=== PATIENT | female | born 1975 | race African-American/Black ===

== ENCOUNTER 2023-09-07 06:40 | Day surgery (SDC) | payer MEDICAID ==
[~2023-09-07] VITALS: Ht 167.6 cm; Wt 130.2 kg
[2023-09-07] MEDS ORDERED: ATOR10TA52 PO (08:29)
[2023-09-07] MEDS ORDERED: MAGN400T40 PO (08:29)
[2023-09-07] MEDS ORDERED: TIZA6CAP10 PO (08:29)
[2023-09-07] MEDS ORDERED: OXYC325T14 PO (08:29)
[2023-09-07] MEDS ORDERED: TIRZ2.5I SC (08:29)
[2023-09-07] MEDS ORDERED: METO25TA5 PO (08:29)
[2023-09-07] MEDS ORDERED: FLUT1AER17 IN (08:29)
[2023-09-07] MEDS ORDERED: ALB5IS NEB (08:29)
[2023-09-07] MEDS ORDERED: HEPARIN SODIUM (PORCINE) 5000 UNITS/ML 1ML VIAL ONE (09:53)
[2023-09-07] MEDS ORDERED: ANGIOMAX 250 MG VIAL IV ONE (09:53)
[2023-09-07] MEDS ORDERED: MIDAZOLAM HCL 2MG/2ML 2ml VIAL (1mg/ml) ONE (09:54)
[2023-09-07] MEDS ORDERED: fentaNYL CITRATE 100 MCG/2 ML VL ONE (09:54)
[2023-09-07] MEDS ORDERED: VERAPAMIL 2.5MG/ML INJ 2ML VIAL IV ONE (09:54)
[2023-09-07] MEDS ORDERED: SODIUM CHL 0.9% 0 ML ONE (09:54)
[2023-09-07] MEDS ORDERED: IODIXANOL 320MG/ML 100ML BTL IV ONE (09:54)
[2023-09-07] MEDS ORDERED: LIDOCAINE 2%HCL (LOCAL ANESTH.) INJ 20ML MDV ONE (09:55)
[2023-09-07] MEDS ORDERED: FAMOTIDINE (10MG/ML) 2ML VL IV ONE (10:17)
[2023-09-07] MEDS ORDERED: methylPREDNISolone SOD SUCC 125 MG/2 ML VL ONE (10:17)
[2023-09-07] MEDS ORDERED: diphenhdrAMINE HCL 50 MG/1 ML VL ONE (10:17)
== END 2023-09-07 12:25 | disposition home or self-care (01) ==
LOC: EDBD → CATH 06:40
PROVIDERS: ATTEND Internal Medicine Cardiovascular Disease
DX: R94.39 Abnormal result of other cardiovascular function study (principal); R06.09 Other forms of dyspnea; J45.909 Unspecified asthma, uncomplicated; E11.9 Type 2 diabetes mellitus without complications; E66.01 Morbid (severe) obesity due to excess calories; M06.9 Rheumatoid arthritis, unspecified; I47.20 Ventricular tachycardia, unspecified; Z91.013 Allergy to seafood
CPT/HCPCS: 93458; C1769; C1894; J1200; J1644; J2250; J2930; J3010; J3490; Q9967; 99152; 99153